=== PATIENT | male | born 2000 | race Caucasian/White ===

== ENCOUNTER 2022-07-16 17:45 | Emergency (ER) | payer OTHER ==
[~2022-07-16] VITALS: Ht 190.5 cm; Wt 171.9 kg
[~2022-07-16 17:45] MED LIST: PRON INH
[2022-07-16 18:01] VITALS: BP 121/86
--- NOTE | 2022-07-16 18:04 | NUR ---
22/M WALKED IN C/O NAUSEA AND VOMITING ONSET YESTERDAY. PT REPORTS 1 EPISODE OF VOMITING YESTERDAY. DENIES BLOOD IN VOMIT. PT ALSO REPORT BLOODSHOT RIGHT EYE. PMH: DENIES
[2022-07-16] MEDS ORDERED: NACL 0.9% 1,000 ML IV SCH (19:10)
[2022-07-16] MEDS: ONDANSETRON 4 MG ODT PO ONE ×2 (19:10→20:34)
[2022-07-16 19:35] LABS: BASOPHILS % (AUTO) 0.3 % (0.0-2.0); EOSINOPHILS # (AUTO) 0.1 K/uL (0-0.4); EOSINOPHILS % (AUTO) 0.9 % (0.0-4.0); HEMOGLOBIN 13.8 g/dL (12.0-18.0); MEAN CORPUSCULAR HEMOGLOBIN 27 pg (27-31); MEAN CORPUSCULAR HGB CONC 33 g/dL (33-37); MEAN CORPUSCULAR VOLUME 82.4 fL (80-94); MONOCYTES # (AUTO) 0.6 K/uL (0.8-1.0); MONOCYTES % (AUTO) 6.4 % (1.7-9.3); NEUTROPHILS # (AUTO) 6.8 K/uL (1.8-7.7); NEUTROPHILS % (AUTO) 71.4 % (42.2-75.2); PLATELET COUNT (AUTO) 264 K/uL (140-450); RED CELL DISTRIBUTION WIDTH 14.1 % (11.6-13.7); WHITE BLOOD COUNT (AUTO) 9.5 K/uL (4.8-10.8)
--- NOTE | 2022-07-16 19:50 | NUR ---
PT TAKEN TO BED 11
--- NOTE | 2022-07-16 20:01 | NUR ---
Patient resting in bed, A/Ox4, chest rise and fall symmetrical, no s/s of distress.
[2022-07-16 20:05] LABS: ALBUMIN 4.1 g/dL (3.4-5.0); ANION GAP 13.2 (8-16); CARBON DIOXIDE 29.7 mmol/L (21-32); CREATININE 1.2 mg/dL (0.6-1.3); POTASSIUM 3.9 mmol/L (3.5-5.1); TOTAL BILIRUBIN 0.5 mg/dL (0.0-1.0)
[2022-07-16] MEDS ORDERED: ONDANSETRON 4 MG/2 ML VIAL ONE (20:34)
--- NOTE | 2022-07-16 22:26 | NUR ---
Patient resting in bed, A/Ox4, chest rise and fall symmetrical, no c/o pain or s/s of distress.
[2022-07-16] MEDS ORDERED: cefTRIAXone 1,000 MG VIAL ONE (23:30)
--- NOTE | 2022-07-17 00:20 | NUR ---
Patient resting in bed, A/Ox4, chest rise and fall symmetrical, no c/o pain or s/s of distress.
[2022-07-17] MEDS ORDERED: ONDANSETRON 4 MG/2 ML VIAL IVP ONE (02:10)
--- NOTE | 2022-07-17 02:12 | NUR ---
Patient resting in bed, A/Ox4, chest rise and fall symmetrical, no c/o pain or s/s of distress. Addendum: 07/17/22 at 0212 by [email or web address] Patient resting in bed, A/Ox4, chest rise and fall symmetrical, no s/s of distress. Patient states that he has "2/10 pain" but "does not currently need medication."
--- NOTE | 2022-07-17 02:13 | NUR ---
Patient to be transferred to [facility]. Is being transferred due to insurance. Receiving facility has accepting physician and available space. ER physician has signed transfer form. Patient or responsible republican has agreed to transfer and signed form. Patient belongings inventoried and will be sent with patient. Copy of nursing notes, lab reports, EKG, Physicians Orders and X-rays to be sent with patient. Report called to James LOVELL at receiving facility. James LOVELL verbalized understanding of report, no further questions. [facility] ambulance service has been called for transfer. ETA is 0300 hrs.
--- NOTE | 2022-07-17 02:50 | NUR ---
[facility] BEDSIDE FOR TRANSPORT
[2022-07-17 03:02] VITALS: BP 95/57
== END 2022-07-17 03:02 | disposition short-term general hospital (02) ==
LOC: MED 17:45
DX: K37 Unspecified appendicitis (principal); Z20.822 Contact with and (suspected) exposure to COVID-19; J45.909 Unspecified asthma, uncomplicated
CPT/HCPCS: 74177; 80053; 83690; 85025; 87426; 96361; 96365; 96375; 99285; J0696; J2405; J7030; Q9967